=== PATIENT | male | born 1950 | race Caucasian/White ===

== ENCOUNTER → 2021-01-06 | Day surgery (SDC) | payer MEDICARE ==
[2021-01-02 09:38] LABS: BASOPHILS # (AUTO) 0.1 (0.0-0.1); BASOPHILS % 0.8 % (0.0-1.0); EOSINOPHILS # (AUTO) 0.3 (0.0-0.4); EOSINOPHILS % 3.3 % (0.0-6.0); HEMATOCRIT 43.4 % (38.2-49.6); HEMOGLOBIN 13.8 g/dL (14.0-18.0); LYMPHOCYTES # (AUTO) 3.9 (1.0-3.2); LYMPHOCYTES % 45.3 % (18.0-39.1); MEAN CORPUSCULAR HEMOGLOBIN 34.2 pg (28-32); MEAN CORPUSCULAR HGB CONC 31.8 g/dL (31-35); MEAN CORPUSCULAR VOLUME 107.4 fL (81-99); MONOCYTES # (AUTO) 0.6 (0.2-0.8); MONOCYTES % 7.5 % (4.4-11.3); NEUTROPHILS # (AUTO) 3.7 (2.1-6.9); NEUTROPHILS % 42.9 % (38.7-80.0); PLATELET COUNT 164 x10e3/uL (140-360); RED BLOOD COUNT 4.04 x10e6/uL (4.3-5.7); RED CELL DISTRIBUTION WIDTH 12.6 % (11.7-14.4)
[2021-01-02 10:05] LABS: ALBUMIN 3.9 g/dL (3.5-5.0); ALBUMIN/GLOBULIN RATIO 1.3 (0.8-2.0); ANION GAP 15.2 mmol/L (8-16); CALCIUM 8.9 mg/dL (8.4-10.2); CREATININE, SERUM 1.2 mg/dL (0.72-1.25); POTASSIUM 5.2 mmol/L (3.5-5.1)
[~2021-01-06] VITALS: Ht 167.6 cm; Wt 88.5 kg
[~2021-01-06] MED LIST: ATORVASTATIN CA10 MG PO; BENZOCAINE 20% SPR 60 ML CAN ONE; CARVEDILOL3.125 MG PO; CLOPIDOGREL75 MG PO; ELIQUIS5 MG PO; FUROSEMIDE40 MG PO; LANTUS 3ML100 UNITS/ SC; LISINOPRIL10 MG PO; MULTI-VITAMIN1 EACH PO; POTASSIUM CHLO10 ME1 PO; SODIUM CHLORIDE 0.9% 1000ML 1,000 ML ONE; SYNJARDY 12.5-1 EACH PO; VITAMIN E400 UNI1 PO
[2021-01-06 10:55] VITALS: BP 138/92
[2021-01-06 12:53] VITALS: BP 127/84
[2021-01-06 12:55] VITALS: BP 130/69
[2021-01-06 13:00] VITALS: BP 107/80
[2021-01-06 13:15] VITALS: BP 129/83
[2021-01-06 13:30] VITALS: BP 125/87
== END | disposition home or self-care (01) ==
LOC: CATH LAB 10:22
PROVIDERS: ATTEND Internal Medicine Interventional Cardiology
DX: I48.91 Unspecified atrial fibrillation (principal); I34.0 Nonrheumatic mitral (valve) insufficiency; I25.10 Atherosclerotic heart disease of native coronary artery without angina pectoris; E11.22 Type 2 diabetes mellitus with diabetic chronic kidney disease; I13.0 Hypertensive heart and chronic kidney disease with heart failure and stage 1 through stage 4 chronic kidney disease, or unspecified chronic kidney disease; N18.9 Chronic kidney disease, unspecified; I50.9 Heart failure, unspecified; Z01.812 Encounter for preprocedural laboratory examination; Z20.822 Contact with and (suspected) exposure to COVID-19; Z79.02 Long term (current) use of antithrombotics/antiplatelets; Z79.4 Long term (current) use of insulin
CPT/HCPCS: 36415 ×2; 80053; 82948; 85025; 93312; 93320; 93325; J7030; U0002; 93307